=== PATIENT | male | born 1995 | race Caucasian/White ===

== ENCOUNTER 2022-01-15 20:39 | Emergency (ER) | payer OTHER ==
[~2022-01-15] VITALS: Ht 185.4 cm; Wt 127.0 kg
--- NOTE | 2022-01-15 22:14 | NUR ---
BIBS FOR C/O R BIG TOE INGROWN NAIL AND INJURY AT WORK. PATIENT ALERT AND ORIENTED X3. AMBULATORY WITH NON LABORED BREAHITNG IN CHAIR 01. AWAITING MD RALPH.
[2022-01-15 23:12] VITALS: BP 145/90
--- NOTE | 2022-01-15 23:12 | NUR ---
Patient discharged to home in stable condition. Written and verbal after care instructions given. Patient verbalizes understanding of instruction.
== END 2022-01-15 23:13 | disposition home or self-care (01) ==
LOC: ER 20:48
DX: M79.674 Pain in right toe(s) (principal)
CPT/HCPCS: 73630-TC